=== PATIENT | female | born 1990 | race Caucasian/White ===

== ENCOUNTER 2018-03-19 20:38 | Observation (INO) ==
[2018-03-19] MEDS ORDERED: Naloxone 0.4 MG/ML INJ IVP STA (21:17)
[2018-03-19 23:08] LABS: Bilirubin,Urine Small (Negative); Blood,Urine Large (Negative); Clarity,Urine Clear (Clear); Color,Urine Dark Yellow (Yellow); Glucose,Urine (UA) Normal (Normal); Ketones,Urine Negative (Negative); Leukocyte Esterase,Urine Negative (Negative); Nitrite,Urine Negative (Negative); Protein,Urine 30 mg/dL (Neg-Trace); Specific Gravity,Urine > 1.030 (1.010-1.025); Urobilinogen,Urine Normal (Normal)
[2018-03-19 23:12] LABS: Bacteria,Urine None Seen per hpf (None-Few); Hyaline Casts,Urine Few per lpf (None-Few); RBC,Urine 15-30 per hpf (0-3); Squamous Epithelial Cell,Urine Many per lpf (None-Few)
[2018-03-19 23:21] LABS: Amphetamine Screen,Urine Positive ng/mL (Cutoff=1000); Barbiturate Screen,Urine Negative ng/mL (Cutoff=200); Benzodiazepines Screen,Urine Positive ng/mL (Cutoff=200); Cannabinoid Screen,Urine Negative ng/mL (Cutoff = 50); Cocaine Screen,Urine Negative ng/mL (Cutoff= 300); Opiate Screen,Urine Negative ng/mL (Cutoff=300); Phencyclidine Screen,Urine Negative ng/mL (Cutoff=25)
[2018-03-19 23:43] LABS: Acetaminophen < 10 mcg/mL (10-20); Alanine Aminotransferase 8 Units/L (7-52); Albumin 4.1 g/dL (3.5-5.7); Albumin/Globulin Ratio 1.8 (1.1-2.2); Alkaline Phosphatase 49 Units/L (34-104); Aspartate Amino Transferase 19 Units/L (13-39); BUN/Creatinine Ratio 14 (6-26); Bilirubin,Direct 0.1 mg/dL (0.0-0.2); Bilirubin,Indirect 0.3 mg/dL (0.0-1.2); Bilirubin,Total 0.4 mg/dL (0.3-1.0); Blood Urea Nitrogen 11 mg/dL (6-20); Calcium 9.2 mg/dL (8.6-10.3); Carbon Dioxide 23 mEq/L (23-29); Chloride 109 mEq/L (98-107); Ethanol 11 mg/dL (Less than 10); Globulin 2.3 g/dL (2.4-3.5); Glucose 87 mg/dL (70-105); Osmolality,Calculated 289 (280-300); Potassium 4.3 mEq/L (3.5-5.1); Salicylate 3.3 mg/dL (15.0-30.0); Sodium 140 mEq/L (136-145); Total Protein 6.4 g/dL (6.4-8.9); eGFR For Non-African Americans > 60 (> 60)
[2018-03-20 00:25] LABS: Basophils % 0.6 %; Eosinophils # 0.2 K/mcL (0.0-0.6); Eosinophils % 2.3 %; Hematocrit 40.1 % (35.3-44.9); Hemoglobin 13.9 g/dL (11.5-15.4); Immature Granulocytes % 0.6 % (0-4); Lymphocytes # 2.9 K/mcL (0.6-4.6); Lymphocytes % 43.5 %; Mean Corpuscular HGB Conc 34.7 g/dL (31.6-35.5); Mean Corpuscular Hemoglobin 30.8 pg (28.0-33.3); Mean Corpuscular Volume 88.9 fL (83.0-100.0); Mean Platelet Volume 10.7 fL (9.4-12.4); Monocytes # 0.5 K/mcL (0.0-1.3); Monocytes % 7.3 %; Platelet Count 241 K/mcL (140-400); Red Blood Count 4.51 M/mcL (3.82-4.97); Segmented Neutrophils % 45.7 %
--- NOTE | 2018-03-20 03:31 | Emergency Department Note ---
Disposition Clinical Impression: Altered mental status Qualifiers: Altered mental status type: unspecified Qualified Code(s): R41.82 - Altered mental status, unspecified Disposition: Admitted As Inpatient Condition: Fair General Adult HPI - General Chief complaint: ED Chest Pain Stated complaint: anxiety Time Seen by Provider: 03/19/18 20:43 Source: patient, police Limitations: no limitations Nursing Notes Reviewed: Yes Vital Signs Reviewed: Yes - History of Present Illness HPI Narrative: Patient presents by EMS for evaluation of possible anxiety attack. The patient states that she did methamphetamines proximally 7 hours ago. The patient states that she started to get a burning sensation in her chest which she gets with her anxiety. She then took gabapentin. Was brought in by EMS. Patient states that she took gabapentin to help with her overall symptoms. The patient' s symptoms are similar to previous anxiety attacks. Her symptoms today are likely worsened from recent methamphetamine use. Will further observe the patient. EKG ordered. Pain Scale: 0 - Related Data Allergies Allergy/AdvReac Type Severity Reaction Status Date / Time acetaminophen [From Vicodin] Allergy Hives Verified 03/19/18 20:51 hydrocodone [From Vicodin] Allergy Hives Verified 03/19/18 20:51 metoclopramide [From Reglan] AdvReac Agitated Verified 03/19/18 20:51 Review of Systems: CONSTITUTIONAL: Generalized weakness HEENT: Eyes: No visual changes. Ears, Nose, Throat: No hearing loss, difficulty talking or unable to swallow. SKIN: No rash or itching. CARDIOVASCULAR: Chest pain described as burning, made better or worse with anything in particular. RESPIRATORY: No shortness of breath, cough or sputum. GASTROINTESTINAL: No anorexia, nausea, vomiting or diarrhea. No abdominal pain or blood. GENITOURINARY: No burning on urination or hematuria. NEUROLOGICAL: No headache, dizziness, syncope, paralysis, ataxia, numbness or tingling in the extremities. No change in bowel or bladder control. MUSCULOSKELETAL: No muscle pain, back pain, joint pain or stiffness. Psych: Anxiety Past Medical History - Past Medical History Medical history: Reports: other Psychiatric history: Reports: anxiety, bipolar, PTSD ONION TOPPER history: Reports: no ONION TOPPER history - Social History Smoking Status: Current every day smoker Smokeless Tobacco Status: No Alcohol use: Reports: none Drug use: Reports: methamphetamine Physical Exam General: Mild distress with anxiety Head: Normocephalic Atraumatic Eyes: PERRL, EOMI ENT: Airway patent, no stridor Neck: supple, no meningismus Chest: Lungs clear to auscultation bilateral Cardiac: Regular rate and rhythm, no murmurs, rubs or gallops Abdomen: soft, nontender, nondistended; no guarding, rebound, or tenderness to percussion Musculoskeletal: Calves symmetric, nontender, no palpable cord Skin: No rash, normal skin tone Neuro: Alert and Oriented to person, place, and time; No focal deficit, - General Limitations: no limitations General appearance: alert, in no apparent distress Course - Reevaluation(s) Reevaluation #1: Patient was reevaluated later during her stay. She can continue to complain of similar symptoms but has been more drowsy. Patient will continued to be monitored. Reevaluation #2: Patient is now resting but is only arousable to pain. She does not have decreased respirations and her oxygen has been 100% on room air. Gag reflex is still intact. Altered mental status workup has been ordered. Reevaluation #3: Patient has remained stable. She has not responded to Narcan. Patient did take gabapentin in her urine is positive for benzos. Her decreased mentation is likely secondary to polysubstance abuse. Patient will be admitted to the hospital service. She has been observed in the emergency department for prolonged period of time and continues to have airway intact. Patient has had slight improvement during her stay but will require further observation. - Consultations Consultation #1: Discussed with hospitalist. Patient accepted for admission. Vital Signs Temperature 98.3 F 03/19/18 20:51 Pulse Rate 84 03/19/18 20:51 Respiratory Rate 18 03/19/18 20:51 Blood Pressure 103/78 03/19/18 20:51 O2 Sat by Pulse Oximetry 98 03/19/18 20:51 Temperature 97.5 F L 03/20/18 05:53 Pulse Rate 68 03/20/18 05:53 Respiratory Rate 17 03/20/18 05:53 Blood Pressure 95/59 03/20/18 05:53 O2 Sat by Pulse Oximetry 93 03/20/18 05:53 Oxygen Delivery Oxygen Delivery Room Air Medical Decision Making - Lab Data Result diagrams: 03/20/18 00:12 03/19/18 23:10 Lab Results 03/19/18 03/19/18 03/19/18 Range/Units 22:56 22:56 23:10 WBC (4.3-11.1) K/mcL RBC (3.82-4.97) M/mcL Hgb (11.5-15.4) g/dL Hct (35.3-44.9) % MCV (83.0-100.0) fL MCH (28.0-33.3) pg MCHC (31.6-35.5) g/dL RDW (11.5-14.5) % Plt Count (140-400) K/mcL MPV (9.4-12.4) fL Immature Gran % (0-4) % Seg Neutrophils % % Lymphocytes % % Monocytes % % Eosinophils % % Basophils % % Neutrophils # (1.6-8.9) K/mcL Lymphocytes # (0.6-4.6) K/mcL Monocytes # (0.0-1.3) K/mcL Eosinophils # (0.0-0.6) K/mcL Basophils # (0.0-0.2) K/mcL Sodium 140 (136-145) mEq/L Potassium 4.3 (3.5-5.1) mEq/L Chloride 109 H (98-107) mEq/L Carbon Dioxide 23 (23-29) mEq/L BUN 11 (6-20) mg/dL Creatinine 0.76 (0.60-1.20) mg/dL Est GFR ( Amer) > 60 (> 60) Est GFR (Non-Af Amer) > 60 (> 60) BUN/Creatinine Ratio 14 (6-26) Glucose 87 (70-105) mg/dL Calculated Osmolality 289 (280-300) Calcium 9.2 (8.6-10.3) mg/dL Total Bilirubin 0.4 (0.3-1.0) mg/dL Direct Bilirubin 0.1 (0.0-0.2) mg/dL Indirect Bilirubin 0.3 (0.0-1.2) mg/dL AST 19 (13-39) Units/L ALT 8 (7-52) Units/L Alkaline Phosphatase 49 (34-104) Units/L Serum Total Protein 6.4 (6.4-8.9) g/dL Albumin 4.1 (3.5-5.7) g/dL Globulin 2.3 L (2.4-3.5) g/dL Albumin/Globulin Ratio 1.8 (1.1-2.2) Urine Color Dark Yellow (Yellow) Urine Clarity Clear (Clear) Urine pH 5.0 (5.0-8.0) pH Units Ur Specific [place] > 1.030 H (1.010-1.025) Urine Protein 30 H (Neg-Trace) mg/dL Urine Glucose (UA) Normal (Normal) mg/dL Urine Ketones Negative (Negative) mg/dL Urine Blood Large H (Negative) Urine Nitrite Negative (Negative) Urine Bilirubin Small H (Negative) Urine Urobilinogen Normal (Normal) mg/dL Ur Leukocyte Esterase Negative (Negative) Urine Microscopic RBC 15-30 H (0-3) per hpf Urine Microscopic WBC 5-15 H (0-3) per hpf Ur Squamous Epith Cells Many H (None-Few) per lpf Urine Bacteria None Seen (None-Few) per hpf Hyaline Casts Few (None-Few) per lpf Salicylates 3.3 L (15.0-30.0) mg/dL Urine Opiates Screen Negative (Rsuhiv=694) ng/mL Acetaminophen < 10 L (10-20) mcg/mL Ur Barbiturates Screen Negative (Bjdimx=353) ng/mL Ur Phencyclidine Scrn Negative (Cutoff=25) ng/mL Ur Amphetamines Screen Positive H (Jewmpo=6645) ng/mL U Benzodiazepines Scrn Positive H (Tubywy=565) ng/mL Urine Cocaine Screen Negative (Cutoff= 300) ng/mL U Marijuana (THC) Screen Negative (Cutoff = 50) ng/mL Ur Drug Screen Interp See Below Ethyl Alcohol 11 H (Less than 10) mg/dL Specimen Rejected 03/19/18 03/20/18 Range/Units 23:10 00:12 WBC 6.6 (4.3-11.1) K/mcL RBC 4.51 (3.82-4.97) M/mcL Hgb 13.9 (11.5-15.4) g/dL Hct 40.1 (35.3-44.9) % MCV 88.9 (83.0-100.0) fL MCH 30.8 (28.0-33.3) pg MCHC 34.7 (31.6-35.5) g/dL RDW 13.0 (11.5-14.5) % Plt Count 241 (140-400) K/mcL MPV 10.7 (9.4-12.4) fL Immature Gran % 0.6 (0-4) % Seg Neutrophils % 45.7 % Lymphocytes % 43.5 % Monocytes % 7.3 % Eosinophils % 2.3 % Basophils % 0.6 % Neutrophils # 3.0 (1.6-8.9) K/mcL Lymphocytes # 2.9 (0.6-4.6) K/mcL Monocytes # 0.5 (0.0-1.3) K/mcL Eosinophils # 0.2 (0.0-0.6) K/mcL Basophils # 0.0 (0.0-0.2) K/mcL Sodium (136-145) mEq/L Potassium (3.5-5.1) mEq/L Chloride (98-107) mEq/L Carbon Dioxide (23-29) mEq/L BUN (6-20) mg/dL Creatinine (0.60-1.20) mg/dL Est GFR ( Amer) (> 60) Est GFR (Non-Af Amer) (> 60) BUN/Creatinine Ratio (6-26) Glucose (70-105) mg/dL Calculated Osmolality (280-300) Calcium (8.6-10.3) mg/dL Total Bilirubin (0.3-1.0) mg/dL Direct Bilirubin (0.0-0.2) mg/dL Indirect Bilirubin (0.0-1.2) mg/dL AST (13-39) Units/L ALT (7-52) Units/L Alkaline Phosphatase (34-104) Units/L Serum Total Protein (6.4-8.9) g/dL Albumin (3.5-5.7) g/dL Globulin (2.4-3.5) g/dL Albumin/Globulin Ratio (1.1-2.2) Urine Color (Yellow) Urine Clarity (Clear) Urine pH (5.0-8.0) pH Units Ur Specific [place] (1.010-1.025) Urine Protein (Neg-Trace) mg/dL Urine Glucose (UA) (Normal) mg/dL Urine Ketones (Negative) mg/dL Urine Blood (Negative) Urine Nitrite (Negative) Urine Bilirubin (Negative) Urine Urobilinogen (Normal) mg/dL Ur Leukocyte Esterase (Negative) Urine Microscopic RBC (0-3) per hpf Urine Microscopic WBC (0-3) per hpf Ur Squamous Epith Cells (None-Few) per lpf Urine Bacteria (None-Few) per hpf Hyaline Casts (None-Few) per lpf Salicylates (15.0-30.0) mg/dL Urine Opiates Screen (Pcptei=786) ng/mL Acetaminophen (10-20) mcg/mL Ur Barbiturates Screen (Njzwuf=926) ng/mL Ur Phencyclidine Scrn (Cutoff=25) ng/mL Ur Amphetamines Screen (Fdbwuc=9445) ng/mL U Benzodiazepines Scrn (Pfovko=212) ng/mL Urine Cocaine Screen (Cutoff= 300) ng/mL U Marijuana (THC) Screen (Cutoff = 50) ng/mL Ur Drug Screen Interp Ethyl Alcohol (Less than 10) mg/dL Specimen Rejected Clotted
[2018-03-20] MEDS ORDERED: Naloxone 0.4 MG/ML INJ IVP PRN (08:58)
--- NOTE | 2018-03-20 09:11 | Internal Med History&Physical ---
Date of Encounter: 03/20/18 Time of Encounter: 09:01 Internal Medicine - H&P: HPI Chief complaint: Chest discomfort, anxiety and polysubstance abuse Admitted From: Home Plans for Post Hospital Care: Home History of present illness: Ms. Quiles is a 28 year old female with a PMH of hepatitis C, anxiety, bipolar and PTSD as well as polysubstance abuse. She presented to [facility] via EMS services with concerns for chest discomfort. The patient reports that she has a history of polysubstance abuse and was abusing amphetamines approximately 7 hours prior to arrival to [facility] She states that she began experiencing a burning sensation and discomfort in her chest. She reports that she has anxiety and these symptoms are similar to when she is experiencing an anxiety attack. She is also reporting diaphoresis, shortness of breath, nausea and dizziness as well as near syncopal symptoms which is concerning for ACS in the setting of polysubstance abuse with methamphetamine. However, her account is inconsistent as a few moments after reporting diaphoresis, shortness of breath, nausea and dizziness as well as near syncopal symptoms she denied them and is requesting to be discharged. She denies any fevers, chills, chest pain, shortness of breath, abdominal pain, nausea, vomiting, diarrhea, unilateral extremity swelling or pain, fatigue, malaise, weight loss, night sweats. While in the ED she reported that due to the chest discomfort she decided to take gabapentin. While in the ED the patient became drowsy and arousable to only painful stimuli. At this time it was decided she should be admitted for observation. Her Urine drug screen positive for methamphetamines and benzodiazepines. She was informed that in her current state, recent abuse of methamphetamines and with her reported symptoms she would benefit from further evaluation and should be admitted for observation. CBC and BMP grossly normal, CT of head obtained and found to be negative for acute intracranial abnormality. Past Med Surg Social Fam HX - Past Medical History Medical history: other Additional medical history: Severe social anxiety. PTSD. Bipolar Psychiatric history: anxiety, bipolar, PTSD - Past Surgical History Additional surgical history: Rt knee surgery x2 - Social History Smoking Status: Current every day smoker Smokeless Tobacco Status: No Alcohol use: none Drug use: methamphetamine - Family History Father History Unknown: Yes Internal Medicine - H&P: Meds 3 Allergy/AdvReac Type Severity Reaction Status Date / Time acetaminophen [From Vicodin] Allergy Hives Verified 03/19/18 20:51 hydrocodone [From Vicodin] Allergy Hives Verified 03/19/18 20:51 metoclopramide [From Reglan] AdvReac Agitated Verified 03/19/18 20:51 All Systems PM: A 10-system review of systems was performed and is negative for pertinent findings except as documented above in the HPI. - Constitutional Constitutional: as per HPI - Cardiovascular Cardiovascular ROS IM: as per HPI - Respiratory Respiratory: as per HPI - Gastrointestinal Gastrointestinal: as per HPI - Neurological Neurological ROS: no confusion, no convulsions, no focal weakness, no numbness, no tingling, no tremor(s) - Constitutional Vitals: Temp Pulse Resp BP Pulse Ox 97.5 F L 68 17 95/59 93 03/20/18 05:53 03/20/18 05:53 03/20/18 05:53 03/20/18 05:53 03/20/18 05:53 Exam: PHYSICAL EXAMINATION: GENERAL: The patient is a well-developed, well-nourished female who is currently drowsy and in no apparent distress. He is drowsy but alert and oriented 3 HEENT: Head is normocephalic and atraumatic. Extraocular muscles are intact. Pupils are equal, round, and reactive to light and accommodation. NECK: Supple. No carotid bruits. No lymphadenopathy or thyromegaly. LUNGS: Clear to auscultation. HEART: Regular rate and rhythm without murmur. ABDOMEN: Soft, nontender, and nondistended. Positive bowel sounds. No hepatosplenomegaly was noted. EXTREMITIES: Without any cyanosis, clubbing, rash, lesions or edema. NEUROLOGIC: Cranial nerves II through XII are grossly intact. PSYCHIATRIC: Agitated and anxious, denies suicidal or homicidal ideations. SKIN: No ulceration or induration present. Internal Med - H&P Results - Labs CBC & Chem 7: 03/20/18 00:12 03/19/18 23:10 - Impressions ITS Impressions Head CT 03/20/18 22:26 IMPRESSION: No acute intracranial abnormality. D/ / Darien Meza MD / Darien Meza MD Interpreting Provider: Darien Meza MD - Assessment and plan (1) Polysubstance abuse Current Visit: Yes Status: Acute Assessment and plan: History of polysubstance abuse UDS positive for amphetamines and benzodiazepines Last reported use yesterday evening less than 24 hours Echo Resulting in chest discomfort and alterations of mental status --CT head negative for acute intracranial abnormality Admit for observation and further monitoring due to alterations in mental status and chest discomfort Per my assessment the patient appears to be anxious. She does have a history of anxiety. And reports that her current presentation is similar to prior episodes of anxiety attacks There are inconsistencies in her history as at times she is reporting chest discomfort, diaphoresis, shortness of breath, nausea, dizziness and near syncope but throughout my exam she is also denying these symptoms Should be noted that the patient is alert and oriented 3 and able to adequately participate in the examination but is slightly drowsy. She denies any suicidal/homicidal ideation. He does not appear to have any internal stimulus and appears to have adequate judgment and capable of making her own decisions. She is being admitted for further workup of chest discomfort with concerns for ACS given recent methamphetamine abuse At this time I will draw serial cardiac enzymes--I will refrain from additional cardiac testing until cardiac enzymes have trended Continue to observe for worsening of mental status It should be noted that multiple times during my admission the patient has stated that she would like to discharge I informed her that given her current state, presentation and concerns for ACS that she should be admitted for observation for further workup and monitoring. I explained that I do not feel she is clinically stable for discharge and requires further evaluation, I explained the benefits and risks of discharging AGAINST MEDICAL ADVICE including worsening of condition, further morbidity mortality and/or . The patient verbalizes understanding and has agreed to stay at this time (2) Chest discomfort Current Visit: Yes Status: Acute Assessment and plan: See above (3) Anxiety Current Visit: Yes Status: Acute Assessment and plan: Per history, continue to treat anxiety (4) Altered mental status Current Visit: Yes Status: Acute Assessment and plan: See above Qualifiers: Altered mental status type: unspecified Qualified Code(s): R41.82 - Altered mental status, unspecified - Time Spent With Patient Total time spent is greater than 50% in coordination of care (as documented) at patient's floor/unit and/or counseling patient: less than 15 minutes - VTE Reasons for not Prescribing Prophylaxis: Treatment not Indicated - Low risk for VTE
[2018-03-20 10:28] VITALS: BP 100/61
--- NOTE | 2018-03-20 15:21 | Event Note ---
Date of Encounter: 03/20/18 Time of Encounter: 15:18 Patient admited for polysubstance abuse and chest pain. Found to have methamphetamines and benzodiazepines on UDS. Admits to last using methamphetamine yesterday evening which likely prompted her chest pain and anxiety-like events. She was informed that she would benefit from further evaluation given her presentation of symptoms. Please see assessment and plan as well as H&P for patient's presentation. However, the patient signed out AGAINST MEDICAL ADVICE this afternoon. I was notified by the floor nurse that at 1515 the patient left AGAINST MEDICAL ADVICE. She was informed that she could have worsening condition, for the ranitidine mortality and/or . The patient continuing to sign out AGAINST MEDICAL ADVICE.
--- NOTE | 2018-03-20 16:43 | Electrocardiograph Report ---
[address] [place], [place] [address] Test Date: 2018-03-19 Pat Name: Aye Quiles Department: Room: [facility] Gender: F [employer]: : 1990 Requested By: [id number] Order Number: [id number] Reading MD: Oksana Goldstein Measurements Intervals [place] Rate: 79 P: 68 SC: 134 QRS: 85 QRSD: 85 T: 27 QT: 381 QTc: 437 Interpretive Statements Sinus rhythm Probable left atrial enlargement Electronically Signed On 03-20-2018 16:41:35 EDT by Oksana Goldstein
== END 2018-03-20 15:15 | disposition home or self-care (01) ==
LOC: EMEROOARM 20:38 → 3NENU 20:38
PROVIDERS: ADMIT Pediatrics; ATTEND Pediatrics